=== PATIENT | male | born 1980 | race Caucasian/White ===

== ENCOUNTER 2019-11-14 15:55 | Emergency (ER) | payer SELFPAY ==
[~2019-11-14] VITALS: Ht 170.2 cm; Wt 84.4 kg
[2019-11-14 16:01] VITALS: Ht 170.2 cm; Wt 84.4 kg
[2019-11-14 19:45] VITALS: BP 130/77
== END 2019-11-14 19:45 | disposition home or self-care (01) ==
LOC: ED 15:55
DX: S06.0X0A Concussion without loss of consciousness, initial encounter (principal); S00.83XA Contusion of other part of head, initial encounter; Y04.8XXA Assault by other bodily force, initial encounter; Y93.89 Activity, other specified; Y92.89 Other specified places as the place of occurrence of the external cause; Y99.8 Other external cause status
CPT/HCPCS: J1885